=== PATIENT | female | born 1990 | race American Indian/Alaskan Native ===

== ENCOUNTER 2022-04-25 22:42 | Emergency (ER) | payer OTHER ==
[2022-04-25 23:54] LABS: Basophils % (Auto) 0.2 % (0.0-1.8); Eosinophils % (Auto) 0.7 % (0.0-4.3); Hematocrit 39.1 % (30.3-42.9); Hemoglobin 13.1 gm/dl (10.1-14.3); Lymphocytes # (Auto) 1.7 K/mm3 (1.2-5.4); Lymphocytes % (Auto) 26.3 % (13.4-35.0); Mean Corpuscular HGB Conc 34 % (30-34); Mean Corpuscular Volume 86 fl (79-97); Monocytes # (Auto) 0.5 K/mm3 (0.0-0.8); Monocytes % (Auto) 7.6 % (0.0-7.3); Platelet Count 319 K/mm3 (140-440); Red Blood Count 4.56 M/mm3 (3.65-5.03); Red Cell Distribution Width 13.7 % (13.2-15.2)
[2022-04-26 00:05] LABS: INR 0.88 (0.87-1.13)
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
[2022-04-26 00:25] LABS: Alanine Aminotransferase 10 units/L (7-56); Albumin 5.1 g/dL (3.9-5); Blood Urea Nitrogen 13 mg/dL (7-17); Calcium 9.6 mg/dL (8.4-10.2); Creatine Kinase MB < 1.0 ng/mL (0.0-4.0); Hemolysis Index 7
[2022-04-26 00:26] LABS: BUN/Creatinine Ratio 19
[2022-04-26 01:47] VITALS: BP 122/71
[2022-04-26] MEDS ORDERED: KETOROLAC 10 MG TAB PO ONE (01:50)
[2022-04-26] MEDS ORDERED: CYCLOBENZAPRINE 10 MG TAB PO ONE (01:50)
[2022-04-26 01:56] LABS: Color,Urine Colorless (Yellow)
[2022-04-26 02:01] LABS: Bacteria,Urine 1+ /HPF (Negative); Mucus,Urine FEW /HPF
[2022-04-26 02:04] LABS: Amphetamine Screen,Urine Negative; Benzodiazepines Screen,Urine Negative; Cocaine Screen,Urine Negative; Methadone Screen,Urine Negative; Opiate Screen,Urine Negative
[2022-04-26 02:30] LABS: Cannabinoid Screen,Urine Positive
--- NOTE | 2022-04-28 14:17 | Electrocardiograph Report ---
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
== END 2022-04-26 02:10 | disposition home or self-care (01) ==
LOC: ED 22:42
DX: E11.649 Type 2 diabetes mellitus with hypoglycemia without coma (principal); Z79.899 Other long term (current) drug therapy; V89.2XXA Person injured in unspecified motor-vehicle accident, traffic, initial encounter; Y93.89 Activity, other specified; Y92.89 Other specified places as the place of occurrence of the external cause; Y99.8 Other external cause status
CPT/HCPCS: 36415; 80053; 80307; 80320; 81001; 82550; 82553; 84484; 85025; 85610; 93005; 99284; G0480